=== PATIENT | male | born 1970 | race Caucasian/White ===

== ENCOUNTER 2019-08-21 20:41 | Emergency (ER) | payer MEDICARE, OTHER, SELFPAY | END 2019-08-22 00:02 | disposition home or self-care (01) | PROVIDERS: Emergency Provider General Practice; PCP Family Medicine; Visit Provider General Practice | DX: R33.9 Retention of urine, unspecified (principal); R10.30 Lower abdominal pain, unspecified; I10 Essential (primary) hypertension; K21.9 Gastro-esophageal reflux disease without esophagitis; Z87.11 Personal history of peptic ulcer disease; N40.0 Benign prostatic hyperplasia without lower urinary tract symptoms; M19.90 Unspecified osteoarthritis, unspecified site; F17.210 Nicotine dependence, cigarettes, uncomplicated | CPT/HCPCS: 36415; 51702; 74177; 80048; 81001; 85025; 99284; Q9967 ==

== ENCOUNTER 2020-02-13 14:44 | Emergency (ER) | payer MEDICARE, SELFPAY ==
--- NOTE | ~2020-02-13 | US_ITS ---
EXAMINATION: US scrotum doppler EXAM DATE: 02/13/2020 17:02 INDICATION: Testicular pain. History of left testicular atrophy, lifting injury with left lower quadr ant pain. Possible hernia. TECHNIQUE: Multiple grayscale and Doppler images of the testicles and scrotum were obtained bilateral ly. There is no prior study for comparison. FINDINGS: Right testicle measures 4.8 x 1.8 x 3.1 cm and is morphologically normal. Low resistance Doppler ayo w confirmed. The epididymis is unremarkable. There is no hydrocele or varicocele. Left testicle measures 4.3 x 1.7 x 3.6 cm, with striated hypoechoic regions, could be chronic given t he history of left testicular atrophy. There is also a moderate-sized varicocele. Low resistance test icular Doppler flow was confirmed. No hypervascularity to the epididymis. IMPRESSION: 1. Striated heterogeneous left testicular echogenicity, could well be chronic appearance given histor y provided. Partially treated orchitis could have similar appearance. 2. Moderate-sized left varicocele. 3. No hernia identified. Reviewed, dictated and finalized at location A. IMPRESSION: 1. Striated heterogeneous left testicular echogenicity, could well be chronic a ppearance given history provided. Partially treated orchitis could have similar appearance. 2. Moderate-sized left varicocele. 3. No hernia identified.
--- NOTE | ~2020-02-13 | CT_ITS ---
EXAMINATION: CT abdomen pelvis w con DATE: 02/13/2020 15:58 INDICATION: Left lower quadrant abdominal pain. Hernia. TECHNIQUE: Computed tomography (CT) of the abdomen and pelvis was performed with 100 cc Omnipaque 350 intravenous contrast. Automated exposure control and iterative reconstruction technique were employe d. Exam dose: 812.14 mGy-cm total exam DLP. COMPARISON: 08/21/2019 CT abdomen pelvis FINDINGS: The lung bases are clear. Normal heart size. Coronary artery calcification. No pericardial or pleural effusion. Status post cholecystectomy. No bile duct or pancreatic duct dilatation. No hepatic, splenic, pancrea tic, and adrenal or renal space-occupying mass lesion is evident. Normal caliber of the abdominal aorta. No intraperitoneal or retroperitoneal or pelvic mass lesion or adenopathy or ascites. No bowel obstruction or intraperitoneal free air. Small fat-containing umbilical hernia. Normal appendix. No bowel obstruction or intraperitoneal free air. The urinary bladder, prostate gland and seminal vesicles are unremarkable. Included skeletal structures are unremarkable. No suspicious osteolytic or osteoblastic lesions are n oted. IMPRESSION: Status post cholecystectomy Small fat-containing umbilical hernia Reviewed, dictated and finalized at [facility]. Reviewed, dictated and finalized at location B.
--- NOTE | 2020-02-13 14:52 | ED.ABDPAIN ---
HPI - Abdominal Pain General Chief Complaint: Urogenital-Male Stated Complaint: left groin pain Time Seen by Provider: 02/13/20 14:47 Source: patient and RN notes reviewed Mode of arrival: ambulatory Limitations: no limitations History of Present Illness HPI narrative: A 49 y/o male presents to the ED with constant, severe, LLQ ABD and lt groin pain for the past 6 days. He states that he was lifting something above his head 6 days ago when he felt a pop in his LLQ ABD, followed by severe pain and swelling. He reports that he saw his urologist today who told him that he needed to come to the ED to be evaluated for a hernia. He notes that the pain is aggravated when he has a BM and that it radiates into his lt groin. He also notes that he last ate some fruit and peanut butter at 9 AM this morning. He denies any fevers, vomiting, diarrhea, blood in stool, constipation, dysuria, or urinary retention. MD elicited complaint: abdominal pain Pertinent past history: diverticulitis Onset (ago): day(s) (6) Pain Consistency: constant Location: LLQ Severity: severe Radiation: other (lt groin) Exacerbating factors: bowel movement Associated symptoms: denies other symptoms Related Data Allergies Allergy/AdvReac Type Severity Reaction Status Date / Time Sulfa (Sulfonamide Allergy Severe Dyspnea / Verified 02/13/20 15:03 Antibiotics) SOB Review of Systems Review of Systems: Narrative: CONSTITUTIONAL: Denies fever. HEENT: Denies congestion Cardiovascular: Denies chest pain Respiratory: Denies shortness of breath GASTROINTESTINAL: Denies vomiting, constipation, diarrhea, or blood in his stool. Reports LLQ ABD pain and lt groin pain. GENITOURINARY: Denies dysuria or urinary retention. Denies testicle pain. Musculoskeletal: Reports aching abdominal muscle pain Skin: Denies rashes All systems reviewed & are unremarkable except as noted in HPI and below PMFSH Past Medical History Medical History Anxiety Arthritis Brachial plexus injury Bronchitis Compression of intervertebral disc Depression Diverticulosis Elbow fracture, left GERD (gastroesophageal reflux disease) H/O: HTN (hypertension) History of inguinal hernia Hx of seizure disorder PTSD (post-traumatic stress disorder) Right hand fracture Ulcer Wrist fracture, left Surgical History Surgical History History of ankle surgery History of bilateral knee replacement History of inguinal hernia repair Social History Social History (Updated 02/13/20 @ 16:22 by Cruz Wild) Smoking packs per day: 1 Smoking cigarettes per day: 20.0 Smoking status: Current every day smoker Second hand tobacco smoke exposure: Yes Gender identity (if verbalized by the patient): Male Exam Narrative: Exam Narrative: GENERAL: Awake, alert, conversant, appears uncomfortable. HEAD: Normocephalic, atraumatic. EYES: EOMI, conjunctiva clear ENT: Nares patent. Mucous membranes moist. NECK: Full range of motion CHEST: No respiratory distress, speaking in full sentences, no tachypnea HEART: Regular rate ABDOMEN: Non distended. LLQ and Suprapubic tenderness. Guarding in the left lower quadrant. No overlaying induration or skin changes. : Left testicular atrophy, no testicular edema, tenderness, no erythema. No inguinal lymphadenopathy. EXTREMITIES: Normal range of motion. No edema. SKIN: Warm, dry, no rash. NEURO: No focal deficits. Alert and oriented x3. Course Course Emergency Course: Patient presented to the emergency department for evaluation of left lower quadrant abdominal pain, his urologist was concerned he possibly had a direct or indirect incarcerated hernia, but on exam I did not appreciate any hernia. No testicular pain, bulging that would be concerning for testicular torsion. Given possible chronic orchitis based on US, I did speak with his urologist who would like me to put the patient on Levaqui
[2020-02-13 15:01] VITALS: BP 144/99; PULSE 81; RESP 17; TEMP 36.5; O2SAT 100
[2020-02-13 15:23] LABS: Eosinophils Absolute Auto 0.3 K/mm3 (0-0.3); Eosinophils Percent Auto 4.4 % (0-4.4); Hematocrit 48.3 % (42.0-52.0); Hemoglobin 15.7 g/dL (14.0-18.0); Immature Granulocyte Absolute 0.02 K/mm3 (0.00-0.031); Immature Granulocyte Percent A 0.3 % (0-0.5); Lymphocytes Percent Auto 24.5 % (18.3-44.2); Mean Corpuscular HGB Conc 32.5 g/dl (32-36); Mean Corpuscular Hemoglobin 31.3 pg (26-34); Mean Corpuscular Volume 96.2 fl (80-100); Mean Platelet Volume 9.1 fl (7.4-10.4); Monocytes Absolute Auto 0.3 K/mm3 (0.1-0.6); Monocytes Percent Auto 5.4 % (2.6-8.5); Neutrophils Percent Auto 65.4 % (45.5-73.1); Platelet Count Result 224 k/mm3 (150-375); Red Blood Count 5.02 M/mm3 (4.6-6.20); White Blood Count 6.1 K/mm3 (4.5-10.0)
[2020-02-13 15:32] LABS: Prothrombin Time 12.4 Seconds (11.1-14.7)
[2020-02-13 15:33] LABS: Partial Thromboplastin Time 25.3 SECONDS (22.3-36.8)
[2020-02-13 15:34] LABS: Lactic Acid Reflex 1.5 mmol/L (0.7-2.1)
[2020-02-13 15:35] LABS: Alanine Aminotransferase 20 U/L (4-50); Albumin Level 4.4 g/dL (3.5-5.1); Alkaline Phosphatase 62 U/L (38-126); Aspartate Amino Transferase 21 U/L (17-59); Bilirubin,Total 0.3 mg/dL (0.2-1.3); Blood Urea Nitrogen 15 mg/dL (9-20); Calcium 9.3 mg/dL (8.4-10.2); Carbon Dioxide 29 mmol/L (22-30); Chloride 105 mmol/L (98-107); Estimated Glomerular Filt Rate > 60; Glucose 93 mg/dL (75-110); Lipase 87 U/L (23-300); Potassium 4.3 mmol/L (3.4-5.0); Sodium 138 mmol/L (137-145)
[2020-02-13] MEDS: ONDANSETRON INJ 4 MG/2 ML VIAL IV PUSH (16:12)
[2020-02-13] MEDS: SODIUM CHLORIDE 0.9% IV 1,000 ML 999 ML IV CONT (16:30)
[2020-02-13] MEDS: MORPHINE SULFATE 4 MG/ML INJ IV PUSH (16:31)
[2020-02-13 17:23] LABS: Add Urine Microscopic? NO; Appearance Urine Clear (Clear); Bilirubin Urine Negative (Negative); Blood Urine Negative (Negative); Color Urine Straw (Yellow); Glucose Urine UA Negative (Negative); Ketones Urine Negative (Negative); Leukocyte Esterase Ur Negative LEU/UL (Negative); Nitrate Urine Negative (Negative); Protein Urine Negative (Negative); Urobilinogen Urine Negative mg/dL (<2.0)
[2020-02-13 17:24] LABS: Specific Grav Ur 1.054 (1.001-1.035)
[2020-02-13 17:42] VITALS: BP 152/88; PULSE 80; RESP 16; O2SAT 97
== END 2020-02-13 18:30 | disposition home or self-care (01) ==
PROVIDERS: Emergency Provider Emergency Medicine; PCP Family Medicine
DX: N45.2 Orchitis (principal); M19.90 Unspecified osteoarthritis, unspecified site; K21.9 Gastro-esophageal reflux disease without esophagitis; I10 Essential (primary) hypertension; Z96.653 Presence of artificial knee joint, bilateral; F17.210 Nicotine dependence, cigarettes, uncomplicated; K42.9 Umbilical hernia without obstruction or gangrene
CPT/HCPCS: 36415; 74177; 76870; 80053; 81003; 83605; 83690; 85025; 85610; 85730; 93976; 96365; 96375; 99284; J0131; J2270; J2405; J3010; J7030; Q9967

== ENCOUNTER → 2021-03-24 06:54 | Outpatient (CLI) | payer MEDICARE, SELFPAY ==
[2021-03-25 17:04] LABS: SARS-CoV-2 RNA PCR Positive
== END ==
PROVIDERS: PCP Family Medicine
DX: U07.1 COVID-19 (principal)
CPT/HCPCS: C9803; U0003; U0005

== ENCOUNTER 2021-04-06 15:12 | Outpatient (CLI) | payer MEDICARE, SELFPAY ==
--- NOTE | ~2021-04-06 | XR_ITS ---
EXAMINATION: XR chest 2V 04/06/2021 15:29 INDICATION: Covid19. Dyspnea. PROCEDURE: PA and lateral views of the chest COMPARISON: Comparison to multiple prior studies sequentially, with oldest reviewed study dated 05/07. FINDINGS: The lungs are clear. The cardiomediastinal silhouette is within normal limits. There are no pleural effusions. There is no pneumothorax suspected. IMPRESSION: 1: NO ACUTE CARDIOPULMONARY DISEASE. Reviewed, dictated and finalized at location A.
== END 2021-04-06 15:13 | disposition home or self-care (01) ==
PROVIDERS: PCP Family Medicine; Visit Provider Family Medicine
DX: R05 Cough (principal)
CPT/HCPCS: 71046

== ENCOUNTER → 2021-06-04 11:10 | Outpatient (CLI) | payer MEDICARE, SELFPAY ==
--- NOTE | ~2021-06-04 | XR_ITS ---
XR hip BI 2V w AP pelvis DATE: 06/04/2021 12:53 INDICATION: Bilateral hip pain TECHNIQUE: AP pelvis. AP and lateral views of each hip. COMPARISON: None FINDINGS: The pubic symphysis and sacroiliac joints are intact. No pelvic fracture or bone destructio n is detected. No fracture or dislocation, avascular necrosis or bone destruction of either hip is detected. IMPRESSION: No significant abnormality Reviewed, dictated and finalized at location A. IMPRESSION: No significant abnormality
--- NOTE | ~2021-06-04 | MR_ITS ---
EXAMINATION: MR lumbar spine wo con EXAM DATE: 06/04/2021 11:50 INDICATION: Degeneration of lumbar intervertebral disc. Low back pain. TECHNIQUE: Multi-sequential, multiplanar MR images of the lumbar spine were obtained without contrast . Sagittal T1, T2, T2 fat saturation images. Axial T2 weighted images. Comparison is made to prior examination from 04/18/2018. FINDINGS: Mild to moderate disc disease at L1-2, mild at the other lumbar levels. The conus medullari s terminates at the T12-L1 level and has normal signal intensity and morphology. There is 2 mm retro listhesis L3 on L4. There are no suspicious marrow signal abnormalities. Paraspinal soft tissue is un remarkable. Level by level evaluation: T12-L1: Disc does not extend beyond the endplate margin. Facet arthropathy: Mild. Neural foraminal stenosis: No stenosis. Central canal stenosis: No stenosis. L1-L2: There is a mild diffuse disc bulge. Facet arthropathy: Mild. Neural foraminal stenosis: Minimal. Central canal stenosis: No stenosis. L2-L3: There is a mild diffuse disc bulge. Facet arthropathy: Moderate. Neural foraminal stenosis: Mild to moderate. Central canal stenosis: Mild. L3-L4: There is a mild diffuse disc bulge. Facet arthropathy: Mild to moderate. Neural foraminal stenosis: Mild to moderate bilateral. Central canal stenosis: Mild. L4-L5: There is a mild to moderate diffuse disc bulge. Facet arthropathy: Moderate to severe bilateral. Small synovial cysts. Neural foraminal stenosis: Moderate to severe right, moderate left. Central canal stenosis: Moderate. Moderate narrowing both lateral recesses. L5-S1: There is a mild diffuse disc bulge. Facet arthropathy: Mild. Neural foraminal stenosis: Mild bilateral. Central canal stenosis: No stenosis. Progression of spondylosis, particularly in the L4-5 Central canal stenosis compared to previous exam ination. IMPRESSION: Interval progression in lumbar spondylosis, most advanced at L4-5. Reviewed, dictated and finalized at location A.
== END ==
PROVIDERS: PCP Family Medicine; Visit Provider Family Medicine
DX: M51.36 Other intervertebral disc degeneration, lumbar region (principal); M47.896 Other spondylosis, lumbar region
CPT/HCPCS: 72148; 73521

== ENCOUNTER 2021-07-07 13:08 | Emergency (ER) | payer MEDICARE, SELFPAY ==
--- NOTE | ~2021-07-07 | XR_ITS ---
EXAMINATION: XR chest 2V DATE: 07/07/2021 13:31 INDICATION: Shortness of breath. Fever. TECHNIQUE: Frontal and lateral views of the chest were obtained. COMPARISON: Chest 2 views 04/06/2021 FINDINGS: The chest demonstrates clear lungs without pneumonia, pleural effusion, or pneumothorax. Th e heart size is normal. IMPRESSION: 1. No acute cardiopulmonary disease. Reviewed, dictated and finalized at location A.
[2021-07-07 13:21] VITALS: BP 151/100; PULSE 74; RESP 20; TEMP 36.8; O2SAT 100
--- NOTE | 2021-07-07 13:21 | ECG_ITS ---
Measurements Intervals [place] Rate: 68 P: 29 [place]: 149 QRS: 7 QRSD: 99 T: 6 QT: 362 QTc: 387 Interpretive Statements SINUS RHYTHM INCOMPLETE RIGHT BUNDLE BRANCH BLOCK INFERIOR INFARCT, AGE INDETERMINATE BASELINE ARTIFACT- I, II, AVR, AVL, V3-V6 ABNORMAL ECG Electronically Signed On 07-07-2021 17:17:21 CDT by Norris Ricketts D.O.
[2021-07-07 13:55] LABS: Basophils Percent Auto 0.4 % (0.2-1.2); Eosinophils Absolute Auto 0.1 K/mm3 (0-0.3); Eosinophils Percent Auto 1.3 % (0-4.4); Hematocrit 50.7 % (42.0-52.0); Hemoglobin 16.6 g/dL (14.0-18.0); Immature Granulocyte Absolute 0.03 K/mm3 (0.00-0.031); Immature Granulocyte Percent A 0.3 % (0-0.5); Lymphocytes Absolute Auto 2.21 K/mm3 (0.9-3.2); Lymphocytes Percent Auto 22.9 % (18.3-44.2); Mean Corpuscular HGB Conc 32.7 g/dl (32-36); Mean Corpuscular Hemoglobin 31.6 pg (26-34); Mean Corpuscular Volume 96.4 fl (80-100); Mean Platelet Volume 8.7 fl (7.4-10.4); Monocytes Absolute Auto 0.5 K/mm3 (0.1-0.6); Monocytes Percent Auto 5.1 % (2.6-8.5); Neutrophils Absolute Auto 6.8 K/mm3 (1.3-6.7); Platelet Count Result 186 k/mm3 (150-375); Red Blood Count 5.26 M/mm3 (4.6-6.20); Red Cell Distribution Width 13.4 % (11.5-14.5); White Blood Count 9.7 K/mm3 (4.5-10.0)
[2021-07-07 14:04] LABS: Anion Gap 7 mmol/L (8-16); Blood Urea Nitrogen 19 mg/dL (9-20); Calcium 9.3 mg/dL (8.4-10.2); Carbon Dioxide 26 mmol/L (22-30); Chloride 102 mmol/L (98-107); Estimated CRCL calculation 130 ml/min; Estimated Glomerular Filt Rate > 60; Glucose 93 mg/dL (65-110); Potassium 4.2 mmol/L (3.4-5.0); Sodium 135 mmol/L (137-145)
[2021-07-07 16:25] VITALS: BP 146/106; PULSE 85; RESP 16; O2SAT 97
[2021-07-07 17:02] LABS: NT Pro B Type Natriuretic Pept 25 pg/mL (5-100); Troponin I < 0.012 ng/mL (0.000-0.034)
[2021-07-07 17:10] LABS: D Dimer 0.33 ug/mL (<0.48)
--- NOTE | 2021-07-07 17:16 | ED.GENADULT ---
HPI - General Adult General Chief complaint: Shortness of Breath/Dyspnea Stated complaint: Difficulty Breathing, Covid in March Time Seen by Provider: 07/07/21 16:20 Source: patient and RN notes reviewed History of Present Illness HPI narrative: Patient is a 50 y/o male complaining of mild cough, SOB for several months. There is no known alleviating or exacerbating factor. He states that he had COVID about 3 months ago in March, but his symptoms never completely resolved. He has intermittent fever up to 101. He also feels weak and dizzy. Related Data Home Medications Medication Instructions Recorded Confirmed [id number] tablet 07/07/21 07/07/21 oxcarbazepine 07/07/21 oxycodone-acetaminophen 07/07/21 prazosin 07/07/21 prazosin 07/07/21 promethazine 07/07/21 Allergies Allergy/AdvReac Type Severity Reaction Status Date / Time Sulfa (Sulfonamide Allergy Severe Dyspnea / Verified 07/07/21 16:28 Antibiotics) SOB Review of Systems Constitutional: Constitutional: Denies chills, Reports fever(s), Reports headache(s) and Reports weakness Eyes: Eyes: Denies blurry vision ENT: Reports headache(s) and Denies neck pain Cardiovascular: Cardiovascular: Denies chest pain and Reports dyspnea Respiratory: Respiratory: Reports cough and Reports dyspnea Gastrointestinal: Gastrointestinal: Denies abdominal pain, Denies diarrhea, Denies nausea and Denies vomiting Genitourinary: Genitourinary: Denies hematuria and Denies dysuria Musculoskeletal: Musculoskeletal: Denies back pain and Denies neck pain Neurologic: Reports dizziness, Reports headache(s) and Reports weakness PMF Past Medical History Medical History (Updated 07/07/21 @ 18:13 by La Aquino MD) Anxiety Arthritis Brachial plexus injury Bronchitis Compression of intervertebral disc Depression Diverticulosis Elbow fracture, left GERD (gastroesophageal reflux disease) H/O: HTN (hypertension) History of inguinal hernia Hx of seizure disorder PTSD (post-traumatic stress disorder) Right hand fracture Ulcer Wrist fracture, left Surgical History Surgical History History of ankle surgery History of bilateral knee replacement History of inguinal hernia repair Social History Social History Smoking packs per day: 1 Smoking cigarettes per day: 20.0 Smoking status: Current every day smoker Second hand tobacco smoke exposure: Yes Gender identity (if verbalized by the patient): Male Exam Const: General: no acute distress and well developed Orientation/consciousness: oriented to person, oriented to place, oriented to time and patient oriented x3 HENMT: Head: normocephalic Ears: external ears normal General nose exam: Normal external nose present Eyes: General: appearance normal, both eyes and all related structures Conjunctivae: conjunctivae normal Neck: Neck: normal visual inspection and full ROM Chest: Chest palpation & inspection: normal inspection of the chest and no tenderness Resp: Effort & Inspection: normal respiratory effort Auscultation: clear to auscultation bilaterally Cardio: Rate: regular rate Rhythm: regular rhythm GI: GI Palp: No abdominal tenderness and Yes Soft to palpation Skin: General skin exam: normal color and turgor normal Neuro: General: oriented to person, oriented to place, oriented to time and patient oriented x3 Cranial nerves: Yes CN's II-XII intact bilaterally Cognition (Neuro): normal cognition Speech: normal speech Motor exam (neuro): 5/5 motor strength present throughout Sensory Exam: normal sensation Coordination: [id number] test normal and [id number] test normal Extrem: General: normal to inspection, full ROM and no pedal edema Psych: Appearance: grossly normal Mental Status: mental status grossly normal Affect: normal affect Course Reevaluation(s) Reev
[2021-07-07 17:53] LABS: EDCOVIDSCREEN Negative (Negative)
[2021-07-07 18:28] VITALS: BP 157/119; PULSE 75; RESP 16; O2SAT 98
== END 2021-07-07 18:29 | disposition home or self-care (01) ==
PROVIDERS: Emergency Medicine; Emergency Provider Emergency Medicine; PCP Family Medicine
DX: R06.02 Shortness of breath (principal); R42 Dizziness and giddiness; Z20.822 Contact with and (suspected) exposure to COVID-19; Z86.16 Personal history of COVID-19; K21.9 Gastro-esophageal reflux disease without esophagitis; I10 Essential (primary) hypertension; G40.909 Epilepsy, unspecified, not intractable, without status epilepticus; Z96.653 Presence of artificial knee joint, bilateral; F17.210 Nicotine dependence, cigarettes, uncomplicated
CPT/HCPCS: 36415; 71046; 80048; 83880; 84484; 85025; 85380; 87426; 93005; 99284; C9803

== ENCOUNTER 2022-08-18 14:59 | Outpatient (CLI) | payer MEDICARE, SELFPAY ==
--- NOTE | ~2022-08-18 | XR_ITS ---
EXAM: XR lumbar spine min 4V DATE: 08/18/2022 15:27 HISTORY: LUMBAR STENOSIS WITH NEUROGENIC CLAUDICATION . COMPARISON: None available. FINDINGS: Cholecystectomy clips 5 nonrib-bearing lumbar-type vertebral bodies. Pedicles intact. 2 mm retrolisthesis of L1-2, unchanged in flexion or extension. 2 mm retrolisthesis at L3-4 that reduces s lightly in flexion, stable in extension. 3 mm anterolisthesis at L4-5 that worsens in flexion and red uces slightly in extension. Vertebral body heights preserved. Mild disc space narrowing at L4-5. Mult ilevel marginal osteophytosis. Facet sclerosis and hypertrophy. No fracture or dislocation. IMPRESSION: Stable grade 1 retrolisthesis at L1-2. Dynamic grade 1 listheses at L3-4 and L4-5. Multil evel mild degenerative disc disease. Multilevel facet arthropathy.. Reviewed, dictated and finalized at location K. IMPRESSION: Stable grade 1 retrolisthesis at L1-2. Dynamic grade 1 listheses at L3-4 and L4-5. Multilevel mild degenerative disc disease. Multilevel facet art hropathy..
== END 2022-08-18 15:00 | disposition home or self-care (01) ==
PROVIDERS: PCP Internal Medicine; Visit Provider Neurological Surgery
DX: M48.062 Spinal stenosis, lumbar region with neurogenic claudication (principal); M51.36 Other intervertebral disc degeneration, lumbar region
CPT/HCPCS: 72110